=== PATIENT | male | born 1945 | race Caucasian/White ===

== ENCOUNTER → 2017-04-13 | Outpatient (CLI) | payer OTHER ==
[~2017-04-13] MED LIST: DEPO METHYLPREDNISOLONE 40 MG/ML SDV ONE; IOPAMIDOL (ISOVUE 370) 100 ML BTL IV ONE; LIDOCAINE 1% 300 MG/30 ML SDV ONE; ROPIVACAINE HCL 150 MG/30 ML INJ ONE
== END ==
LOC: FIMAGING 10:12
PROVIDERS: ATTEND Orthopaedic Surgery
PROC: 3E0U3BZ Introduction of Anesthetic Agent into Joints, Percutaneous Approach (ICD-10-PCS; principal; 2017-04-13)
PROC: 3E0U33Z Introduction of Anti-inflammatory into Joints, Percutaneous Approach (ICD-10-PCS; principal; 2017-04-13)
DX: M25.552 Pain in left hip (principal)
CPT/HCPCS: 20610; J1030; J2795; Q9967

== ENCOUNTER 2017-09-19 10:51 | Inpatient (IN) | payer OTHER ==
--- NOTE | 2017-09-19 07:17 | PDHPUP ---
History & Physical Update H&P update statement: This history and physical update is based on an assessment of the patient which was completed after admission or registration (within 24 hours), but prior to the surgery/procedure. H&P update: H&P reviewed & patient examined, no change in patient's condition since H&P completed
[~2017-09-19 10:51] MED LIST changes: -DEPO METHYLPREDNISOLONE 40 MG/ML SDV ONE; -IOPAMIDOL (ISOVUE 370) 100 ML BTL IV ONE; -LIDOCAINE 1% 300 MG/30 ML SDV ONE; +ROPIVACAINE 0.2% 80 MG, EPINEPHrine 0.2 MG, KETOROLAC TROMETHAMINE 30 MG in SYRINGE 0 ML IU ONE; -ROPIVACAINE HCL 150 MG/30 ML INJ ONE; +TRANEXAMIC ACID 3,000 MG in NS (SYRINGE) 50 ML IRR ONE; +TRANEXAMIC ACID 3,000 MG/50 ML BAG IRR ONE
[2017-09-19] MEDS ORDERED: FAMOTIDINE 20 MG TAB PO ONE (11:41)
[2017-09-19] MEDS ORDERED: ACETAMINOPHEN 325 MG TAB PO ONE (11:41)
[2017-09-19] MEDS ORDERED: ceFAZolin 2 GM/DEXTROSE 100 ML IV ONE (11:41)
[2017-09-19] MEDS ORDERED: LR 1,000 ML IV ONE (11:49)
[2017-09-19] MEDS ORDERED: LIDOCAINE 1% 2 ML INJ ID PRN (11:49)
--- NOTE | 2017-09-19 13:03 | PDANEPAE ---
ANE History of Present Illness 72 year old with left hip arthritis ANE Past Medical History - Cardiovascular History Hx Hypertension: Yes Hx Arrhythmias: No Hx Chest Pain: No Hx Coronary Artery / Peripheral Vascular Disease: Yes Hx CHF / Valvular Disease: No Hx Palpitations: No Cardiovascular History Comment: STENT X1 2004. HYPERLIPIDEMIA. HX R BBB/LAFB - Pulmonary History Hx COPD: No Hx Asthma/Reactive Airway Disease: No Hx Recent Upper Respiratory Infection: No Hx Oxygen in Use at Home: No Hx Sleep Apnea: No Sleep Apnea Screening Result - Last Documented: Positive Pulmonary History Comment: PE 2016 - Neurologic History Hx Cerebrovascular Accident: No Hx Seizures: No Hx Dementia: No Neurologic History Comment: POSS TIA 2011 - Endocrine History Hx Diabetes: No - Renal History Hx Renal Disorders: Yes Renal History Comment: KIDNEY STONES. BPH - Liver History Hx Hepatic Disorders: Yes Hepatic History Comment: PANCREATIC TUMOR - Neurological & Psychiatric Hx Hx Neurological and Psychiatric Disorders: No - Cancer History Hx Cancer: Yes Cancer History Comment: PROSTATE CA 2014 - Congenital Disorder History Hx Congenital Disorders: No - GI History Hx Gastrointestinal Disorders: Yes - Other Health History Other Health History: GOUT. OSTEOARTHRITIS - Chronic Pain History Chronic Pain: Yes (L HIP PAIN) - Surgical History Prior Surgeries: PORT 02/2016 AND REMVD. LAP SPLENECTOMY AND DISTAL PANCREATECTOMY 01/2016. R ELIANA 2006. TONSILLECTOMY. ANGIOGRAM W STENT PLACEMENT 03/2005 ANE Review of Systems Review of systems is: negative Review of Systems: - Exercise capacity METS (RN): 4 METS ANE Patient History - Allergies Allergies/Adverse Reactions: erythromycin base Allergy (Verified 09/04/17 17:23) Unknown - Home Medications Home Medications: Allopurinol [Allopurinol 300 MG (RX)] 300 mg PO DAILY 11/13/11 [Last Taken 09/12] Aspirin [Aspirin 325 mg (*)] 325 mg PO DAILY 11/13/11 [Last Taken 09/12/17] Ibuprofen [Motrin (*)] 200 mg PO DAILY 11/13/11 [Last Taken 09/12/17] Cholecalciferol Vit D3 [Vitamin D3 (*)] 1,000 units PO DAILY 12/27/15 [Last Taken 09/05/17] Lisinopril [Zestril 10 mg (*)] 10 mg PO DAILY 12/27/15 [Last Taken 09/18/17 07: 00] Rosuvastatin Calcium [Crestor 20mg (*)] 10 mg PO DAILY 12/27/15 [Last Taken 18:00] Psyllium Husk/Aspartame [Metamucil Fiber Singles Packet] 3.4 gm PO DAILY [Last Taken 09/18/17 18:00] metFORMIN HCL [Metformin HCl ER] 2,000 mg PO HS 09/03/17 [Last Taken 09/18/17 18 :00] - Smoking Hx Smoking Status: Former smoker - Family Anes Hx Family Hx Anesthesia Complications: NEG ANE Labs/Vital Signs - Vital Signs Height: 167.64 cm Weight: 76.204 kg ANE Physical Exam - Airway Neck exam: FROM Mallampati Score: Class 2 Mouth exam: normal dental/mouth exam - Pulmonary Pulmonary: no respiratory distress - Cardiovascular Cardiovascular: regular rate and rhythym - ASA Status ASA Status: II
[2017-09-19] MEDS ORDERED: MIDAZOLAM 2 MG/2 ML VIAL ONE (13:05)
[2017-09-19] MEDS ORDERED: BUPIVACAINE/DEXTROSE 7.5MG/ML 2 ML SPINAL AMP SP ONE (13:11)
[2017-09-19] MEDS ORDERED: PROPOFOL/EMULSION 500 MG/50 ML BOTTLE IV ONE (13:13)
[2017-09-19] MEDS ORDERED: fentaNYL 100 MCG/2 ML INJ ONE (13:43)
[2017-09-19] MEDS ORDERED: LACTULOSE 20 GM/30 ML UDCUP PO PRN (14:02)
[2017-09-19] MEDS ORDERED: PROMETHAZINE HCL 25 MG/ML INJ IVP PRN ×2 (14:02→14:37)
[2017-09-19] MEDS ORDERED: METOCLOPRAMIDE 10 MG/2 ML VIAL IVP PRN (14:02)
[2017-09-19] MEDS ORDERED: BISACODYL 10 MG SUPP PR PRN (14:02)
[2017-09-19] MEDS ORDERED: PROMETHAZINE HCL 25 MG SUPPR PR PRN (14:02)
[2017-09-19] MEDS ORDERED: diphenhydrAMINE 25 MG CAP PO PRN (14:02)
[2017-09-19] MEDS ORDERED: TEMAZEPAM 15 MG CAP PO PRN (14:02)
[2017-09-19] MEDS ORDERED: CYCLOBENZAPRINE 10 MG TAB PO PRN (14:02)
[2017-09-19] MEDS ORDERED: DIPHENOXYLATE/ATROPINE LOMOTIL 1 TAB PO PRN (14:02)
[2017-09-19] MEDS ORDERED: POLYETHYLENE GLYCOL 3350 17 GM PKT PO PRN (14:02)
[2017-09-19] MEDS ORDERED: ONDANSETRON DISINTEGRATING 4 MG TAB PO PRN (14:02)
[2017-09-19] MEDS ORDERED: ONDANSETRON 4 MG/2 ML VIAL IVP PRN ×2 (14:02→14:37)
[2017-09-19] MEDS ORDERED: MAGNESIUM HYDROXIDE 30 ML UDCUP PO PRN (14:02)
[2017-09-19] MEDS ORDERED: D50W 25 GM/50 ML SYR IVP PRN (14:04)
[2017-09-19] MEDS ORDERED: MIDAZOLAM 2 MG/2 ML VIAL IVP ONE (14:17)
[2017-09-19] MEDS ORDERED: LR 1,000 ML IV SCH (14:30)
[2017-09-19] MEDS ORDERED: NALOXONE HCL 0.4 MG/ML INJ IVP PRN (14:37)
[2017-09-19] MEDS ORDERED: fentaNYL 100 MCG/2 ML INJ IVP PRN (14:37)
--- NOTE | 2017-09-19 14:38 | PDMN ---
Medical Necessity Medical necessity: [facility] [place] S-560 Hip Arthroplasty medicare inpt only, pt had L ELIANA
--- NOTE | 2017-09-19 14:55 | POSTOPPROG ---
Post Op Note Date of Operation: 09/19/17 Surgeon: Shantla Ferrari Varnish Supervisor: Adrianna Ferrari PAc Anesthesiologist: warm Anesthesia: Spinal Pre-op Diagnosis: L hip djd Post-op Diagnosis: same Indication: pain Procedure: L ELIANA Findings: DJD hip Inf/Abcess present in the surg proc area at time of surgery?: No EBL: 100-500
[2017-09-19] MEDS ORDERED: WARFARIN SODIUM 5 MG TAB PO SCH (16:30)
[2017-09-19] MEDS: INSULIN REGULAR HUMAN 100 UNIT/ML UNIT SC SCH ×2 (17:26→21:20)
[2017-09-19] MEDS: ACETAMINOPHEN 325 MG TAB PO SCH ×2 (17:28→23:44)
[2017-09-19] MEDS ORDERED: metFORMIN SR 500 MG TAB PO SCH (21:00)
[2017-09-19] MEDS: ceFAZolin 2 GM/DEXTROSE 100 ML IV SCH (21:15)
[2017-09-19] MEDS: FAMOTIDINE 20 MG TAB PO SCH (21:15)
[2017-09-19] MEDS: SENNOSIDES/DOCUSATE SODIUM TAB PO SCH (21:15)
[2017-09-19] MEDS: oxyCODONE IR 5 MG TAB PO PRN ×2 (21:15→22:04)
[2017-09-20] MEDS: oxyCODONE IR 5 MG TAB PO PRN (01:57)
--- NOTE | 2017-09-20 04:37 | GOP ---
[f rep st] OPERATIVE REPORT DATE OF OPERATION: 09/19/2017 SURGEON: Toro Ferrari MD NEUROSURGEON: Toro Ferrari MD PETROL TANKER DRIVER: ANIKA Gordon PREOPERATIVE DIAGNOSIS: Left hip osteoarthritis. POSTOPERATIVE DIAGNOSIS: Left hip osteoarthritis. PROCEDURE PERFORMED: Left total hip replacement. FINDINGS: ESTIMATED BLOOD LOSS: 200 mL. INDICATIONS: The patient has progressively worsening arthritis of the hip which has failed medical m anagement. The patient understands the treatment options including continued non-operative care and has selected surgical intervention. The patient has decided to undergo total hip arthroplasty via th e direct anterior approach, understanding the risks of the procedure including, but not limited to, n eurovascular injury, infection, persistent pain, component wear and loosening, deep venous thrombosis , pulmonary embolism, limb length inequality, hip instability (including dislocation), and intra-oper ative fractures. DESCRIPTION OF PROCEDURE: After proper identification of the patient including verification and gaby ing the surgical site, the patient was brought to the operating room and placed in the supine positio n. All bony prominences were well padded. Anesthesia was induced without complication and intraveno us prophylactic antibiotics were administered prior to skin incision. The operative leg was placed in the Trumpf Arch table extension and the well leg in a Yellofin leg ho lder. The patient was prepped and draped in the usual sterile fashion. The C-arm was draped for int ra-operative fluoroscopy to check acetabular position, femoral component position including leg lengt h and femoral offset. Attention was then drawn to surgical exposure of the hip. An incision was made with a #10 Bard Christa r blade starting 3 cm lateral and 3 cm distal to the anterior superior iliac spine measuring 8-10 cm and coursing distally toward the greater trochanter. The skin and subcutaneous tissues were divided sharply down to the fascia brian. The fascia brian was incised in line with the skin incision exposing the underlying tensor fascia brian muscle. The muscle was bluntly elevated from the fascia and the f irst extracapsular Cobra retractor was placed laterally at the junction of the superior femoral neck and greater trochanter. The lateral femoral circumflex vessels were identified, cauterized, and divi ded with the Aquamantys bipolar cautery. The deep investing fascia of the TFL was divided to allow p jd mobilization of the muscle preventing damage during the retraction. The reflected head of the rectus femoris muscle was elevated off the anterior hip capsule and a medial Cobra retractor was plac ed just proximal to the lesser trochanter. The anterior capsulotomy was made sharply from the superolateral acetabulum to the saddle junction of the superior femoral neck and greater trochanter, then coursing inferomedial towards the lesser troc hanter. The retractors were then placed in the intracapsular position for femoral neck osteotomy. C orresponding to pre-operative templating, the osteotomy was made with the oscillating saw carefully p rotecting the greater trochanter and soft tissues. The femoral head was removed from the acetabulum with a corkscrew and confirmed to be severely arthritic with exposed bone, deformity and osteophytes. Similar findings were confirmed in the acetabulum. The Arch table extension was then placed in 40 degrees external rotation. Attention was then drawn to the acetabular preparation. After placement of the anterior and posterio r Cobra retractors outside the labrum and intracapsular, the circumferential labrum was removed sharp ly. The foveal contents were then removed and hemostasis obtained with cautery. The first reamer selected was sized using the removed femoral head. Reaming began with medialization and then commenced in 2 mm increments at 45 degrees of abduction and 15 degrees of anteversion using fluoroscopic navigation. Reaming ceased 1 mm less than the definitive acetabular component and dotty esponded to the pre-operative templating. The final acetabular component was inserted using fluorosc opy to achieve proper orientation yielding excellent purchase and stability in the acetabulum. The f inal acetabular liner was then placed and its seating confirmed. Attention was then turned to the femur. The Arch table extension was placed in extension and adducti on, delivering the osteotomized femoral neck into the wound. A 2-pronged femoral elevator was placed at the calcar and another at the tip of the greater trochanter. The posterolateral capsule was rele ased with cautery allowing mobilization of the femur lateral and anterior for preparation. The exter nal rotators were visualized and preserved. A curette and rongeur were used to open the starting poi nt for broaching. Serial broaching started with the #0 broach and ended with the broach that exhibit ed excellent fit in the proximal femur. A change in pitch during mallet strikes was accompanied by t he inability to advance the broach any further. The trial reduction was performed and fluoroscopic n avigation was utilized to check limb length. Adjustments were made to equalize limb length according ly. After the final trials were accepted they were removed and the wound was copiously lavaged. The femo ral component was seated to the same depth as the final broach and the femoral head was impacted onto the clean trunnion. The hip was then reduced for the final time and once more fluoroscopy was used to check that limb length equality was achieved. The wound was irrigated and closed in layers, the fascia brian with 2-0 Quill, the subcutaneous tissue with 2-0 Quill, and the skin with Dermabond. Sterile dressings were applied. Final sharps and spon ge counts were accurate. The patient was then transferred to a hospital bed and brought to the [facility] room in stable condition. IMPLANTS: Accolade II size 5 at 127. Acetabular component, a 54 mm Trident II. Liner is a Trident X3 36 mm. Head is a Biolox Delta 36 mm, +0. /[id number]/MODL
[2017-09-20] MEDS: ceFAZolin 2 GM/DEXTROSE 100 ML IV SCH (05:28)
[2017-09-20] MEDS: ACETAMINOPHEN 325 MG TAB PO SCH ×2 (05:28→13:42)
[2017-09-20 05:42] LABS: INR 1.23 (0.83-1.16); PROTIME(PATIENT) 15.7 SEC (12.0-15.0)
[2017-09-20 07:27] VITALS: BP 132/80
--- NOTE | 2017-09-20 08:48 | SOAPPROG ---
SOAP Progress Note Assessment/Plan: Assessment: Patient is doing well POD 1 s/p L ELIANA Pain management: pain is well controlled on oral pain meds. VTE ppx: recommend coumadin and lovenox. INR 1.23 today cont GARCIA and SCDs Anemia: level is expected initially postop. Asymptomatic. Continue to monitor D/c planning: d/c to home today pending release from PT Plan: 09/20/17 08:47 Subjective: patient is doing well, denies SOB, chest pain and N/V. Objective: Vital Signs Temp Pulse Resp BP Pulse Ox 37.3 C 81 16 132/80 H 93 09/20/17 07:23 09/20/17 07:23 09/20/17 07:23 09/20/17 07:23 09/20/17 07:23 Laboratory Results 09/20/17 04:20 09/19/17 09/20/17 09/21/17 05:59 05:59 05:59 Intake Total 3070 Output Total 1225 Balance 1845 PT 15.7 SEC (12.0-15.0) H 09/20/17 04:20 INR 1.23 (0.83-1.16) H 09/20/17 04:20 LLE: incision dressing is clean and dry, NVI, +pf/df ICD10 Worksheet Patient Problems: Problems Problem Status Onset Primary localized osteoarthritis of left hip Acute Surgery follow-up Acute
[2017-09-20] MEDS ORDERED: ROSUVASTATIN CALCIUM 20 MG TAB PO SCH (09:00)
[2017-09-20] MEDS ORDERED: LISINOPRIL 10 MG TAB PO SCH (09:00)
[2017-09-20] MEDS ORDERED: ENOXAPARIN 40 MG/0.4 ML SYR SC SCH (09:00)
[2017-09-20] MEDS: SENNOSIDES/DOCUSATE SODIUM TAB PO SCH (09:33)
[2017-09-20] MEDS: FAMOTIDINE 20 MG TAB PO SCH (09:34)
[2017-09-20] MEDS: INSULIN REGULAR HUMAN 100 UNIT/ML UNIT SC SCH ×2 (09:39→13:42)
--- NOTE | 2017-09-20 16:57 | GDS ---
[f rep st] DISCHARGE SUMMARY ADMISSION DIAGNOSIS: Left hip osteoarthritis. DISCHARGE DIAGNOSIS: Left hip osteoarthritis. PROCEDURE: Left total hip arthroplasty. VTE PROPHYLAXIS: Recommend Coumadin and Lovenox. BRIEF DESCRIPTION OF HOSPITAL STAY: Patient was admitted for an elective joint arthroplasty. The pa tient tolerated the procedure well and has passed physical therapy. The patient was given appropriat e antibiotic prophylaxis and venous thromboembolism prophylaxis. The patient's pain was well control led on oral pain medication, patient was holding down food, and had urinated. Decision was made to d ischarge the patient. The patient was given post-operative prescriptions pre-operatively. PLAN: Please follow up as scheduled in Dr. Ferrari's office October 11 at 10:30. /[id number]/MODL
== END 2017-09-20 13:32 | disposition home or self-care (01) | DRG 470 ==
LOC: F3N 10:51
PROVIDERS: ADMIT Orthopaedic Surgery; ATTEND Orthopaedic Surgery
PROC: 0SRB04Z Replacement of Left Hip Joint with Ceramic on Polyethylene Synthetic Substitute, Open Approach (ICD-10-PCS; principal; 2017-09-19 13:15)
DX: M16.12 Unilateral primary osteoarthritis, left hip (principal); I10 Essential (primary) hypertension; Z95.5 Presence of coronary angioplasty implant and graft; E78.4 Other hyperlipidemia; Z86.711 Personal history of pulmonary embolism; N40.0 Benign prostatic hyperplasia without lower urinary tract symptoms; Z85.46 Personal history of malignant neoplasm of prostate; M10.9 Gout, unspecified; Z79.01 Long term (current) use of anticoagulants
CPT/HCPCS: 97116-GP; 97161-GP; 97165-GO; 97535-GO; G8978-GP-CI; G8979-GP-CI; G8980-GP-CI; G8987-GO-CI; G8988-GO-CI; G8989-GO-CI; J0171; J0690; J1650; J1815; J1885; J2250; J2704; J2795; J3010